=== PATIENT | female | born 1985 | race Caucasian/White ===

== ENCOUNTER 2017-03-04 15:14 | Emergency (ER) | payer BC, MEDICAID ==
[2017-03-04 16:22] VITALS: BP 106/63
--- NOTE | 2017-03-04 16:52 | UC ---
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 Hx Last Menstrual Period: iud does not get menses Onset/Duration: Gradual Onset, Lasting Days, Still Present Severity: Mild Cough: None Associated Signs & Symptoms: Positive: Hoarseness, Fever - Epiglottits Risk Factors Epiglottis Risk Factors: Negative - Allergies/Home Medications Allergies/Adverse Reactions: Allergies Allergy/AdvReac Type Severity Reaction Status Date / Time Doxycycline Allergy GI Upset Verified 03/04/17 16:22 Penicillins AdvReac Mild Vomiting Verified 03/04/17 16:22 Home Medications: Home Medications Ibuprofen TAB* [Motrin TAB* 600 MG] 600 mg PO Q8H PRN 03/04/17 [History Confirmed 03/04/17] PMH/Surg Hx/FS Hx/Imm Hx Previously Healthy: Yes Respiratory History Of: Reports: Asthma - Surgical History Surgical History: None - Family History Known Family History: Positive: Respiratory Disease - asthma, COPD Family History: cardiac disease, breast cancer - Social History Occupation: Employed Full-time Alcohol Use: Occasionally Substance Use Type: None Smoking Status (MU): Former Smoker Type: Cigarettes Amount Used/How Often: 1 - 1 1/2 PPD Length of Time of Smoking/Using Tobacco: 10 Years Have You Smoked in the Last Year: No When Did the Patient Quit Smoking/Using Tobacco: 4 years ago - Immunization History Most Recent Influenza Vaccination: Not the Season Review of Systems Constitutional: Fever, Chills Skin: Negative Eyes: Negative ENT: Sore Throat Respiratory: Negative Cardiovascular: Negative Gastrointestinal: Negative Genitourinary: Negative Motor: Negative Neurovascular: Negative Musculoskeletal: Negative Neurological: Negative Psychological: Negative All Other Systems Reviewed And Are Negative: Yes Physical Exam Triage Information Reviewed: Yes Appearance: No Pain Distress, Well-Nourished, Ill-Appearing Vital Signs: Initial Vital Signs Temp 99.3 F 03/04/17 16:18 Pulse 76 03/04/17 16:18 Resp 16 03/04/17 16:18 BP 106/63 03/04/17 16:18 Pulse Ox 98 03/04/17 16:18 Vital Signs Reviewed: Yes Eye Exam: Normal ENT: Positive: Hearing grossly normal, Pharyngeal erythema, TMs normal, Tonsillar swelling Dental Exam: Normal Neck exam: Normal Neck: Positive: Supple, Nontender, No Lymphadenopathy Respiratory Exam: Normal Respiratory: Positive: Chest non-tender, Lungs clear, Normal breath sounds, No respiratory distress, No accessory muscle use Cardiovascular Exam: Normal Cardiovascular: Positive: RRR, No Murmur, Pulses Normal, Brisk Capillary Refill Abdominal Exam: Normal Musculoskeletal Exam: Normal Musculoskeletal: Positive: Strength Intact, ROM Intact Neurological Exam: Normal Psychological Exam: Normal Psychological: Positive: Normal Response To Family Skin Exam: Normal Throat Pain/Nasal Course/Dx - Differential Dx/Diagnosis Differential Diagnosis/HQI/PQRI: Pharyngitis, Sinusitis, Tonsillitis, URI Provider Diagnoses: TONSILLITIS Discharge - Discharge Plan Condition: Stable Disposition: HOME Patient Education Materials: Tonsillitis (ED), Viral Syndrome (ED) Referrals: Danielle Barba MD [Primary Care Provider] -
== END 2017-03-04 17:02 | disposition home or self-care (01) ==
LOC: UCCORT 15:14
DX: J03.90 Acute tonsillitis, unspecified (principal); J45.909 Unspecified asthma, uncomplicated; Z88.1 Allergy status to other antibiotic agents; Z88.0 Allergy status to penicillin; Z87.891 Personal history of nicotine dependence
CPT/HCPCS: 87651; 99211; G0463

== ENCOUNTER 2017-07-21 17:53 | Emergency (ER) | payer BC ==
[2017-07-21 18:51] VITALS: BP 125/70
--- NOTE | 2017-07-21 20:11 | UC ---
Throat Pain/Nasal Jac HPI - HPI Summary HPI Summary: Pt presents complaining of 5 days preogressive ear pain R>L and feeling swollen under her neck. Pt reports tactile fevers and chills. No sob, cp. No abd pain. No nauease, vomiting Pt reports sinus congestion, PND. No sore throat. Pt states previously had a h/o salivary duct infection and is concerned this is the same but doesn't recall ear pain with previous. sx improve with Motrin, none today + sick contact pt's medications reviewed this visit - History of Current Complaint Chief Complaint: UCRespiratory Stated Complaint: SORE THROAT Time Seen by Provider: 07/21/17 20:10 Hx Obtained From: Patient Hx Last Menstrual Period: unknown, IUD ?: No Onset/Duration: Gradual Onset Pain Intensity: 6 Associated Signs & Symptoms: Positive: Fever - tactile, Other - ear R>L - Allergies/Home Medications Allergies/Adverse Reactions: Allergies Allergy/AdvReac Type Severity Reaction Status Date / Time Doxycycline Allergy GI Upset Verified 07/21/17 18:51 Penicillins AdvReac Mild Vomiting Verified 07/21/17 18:51 PMH/Surg Hx/FS Hx/Imm Hx Previously Healthy: Yes - Surgical History Surgical History: None - Family History Known Family History: Positive: Respiratory Disease - asthma, COPD Family History: cardiac disease, breast cancer - Social History Occupation: Employed Full-time Lives: With Family Alcohol Use: Occasionally Substance Use Type: None Smoking Status (MU): Former Smoker Type: Cigarettes Amount Used/How Often: 1 - 1 1/2 PPD Length of Time of Smoking/Using Tobacco: 10 Years Have You Smoked in the Last Year: No When Did the Patient Quit Smoking/Using Tobacco: 4 years ago - Immunization History Most Recent Influenza Vaccination: not Review of Systems Constitutional: Fever ENT: Ear Ache, Sinus Congestion Respiratory: Negative Cardiovascular: Negative All Other Systems Reviewed And Are Negative: Yes Physical Exam Triage Information Reviewed: Yes Appearance: Well-Appearing, No Pain Distress, Well-Nourished Vital Signs: Initial Vital Signs Temp 98.6 F 07/21/17 18:47 Pulse 71 07/21/17 18:47 Resp 18 07/21/17 18:47 BP 125/70 07/21/17 18:47 Pulse Ox 100 07/21/17 18:47 Vital Signs Reviewed: Yes Eye Exam: Normal Eyes: Positive: Conjunctiva Clear ENT: Positive: Other: - right TM ++ fluid, erythema, buldgine left TM scant fluid turninates inflammed and boggy no intraoral edema No pain of inflammation sublingual No pain or edema with palpation of miller's duct Dental Exam: Normal Neck: Positive: Supple, Nontender, No Lymphadenopathy - + subman LA R>L Respiratory Exam: Normal Respiratory: Positive: Chest non-tender, Lungs clear Cardiovascular Exam: Normal Cardiovascular: Positive: RRR, No Murmur Abdominal Exam: Normal Musculoskeletal Exam: Normal Neurological Exam: Normal Psychological Exam: Normal Throat Pain/Nasal Course/Dx - Course Assessment/Plan: Pt presets with ear pain, congestion and fullness of neck. On exam pt with right OM and lymphadenopathy. No concern for deep space infection or salivary gland involvement. No difficulty with secretions or intraoral edema. will give rx for abx, flonase. secretion precaution. return prevautions. pt comfortable and in agreement with plan - Differential Dx/Diagnosis Provider Diagnoses: otitis media. lymphadenopathy Discharge - Discharge Plan Condition: Stable Disposition: HOME Prescriptions: Cefdinir [Cefdinir 300 MG CAP] 300 mg PO BID #20 cap Fluticasone NASAL * [Flonase *] 2 spray BOTH NARES DAILY #1 spray Patient Education Materials: Lymphadenopathy (ED), Otitis Media (ED) Referrals: Danielle aBrba MD [Primary Care Provider] - Additional Instructions: - Okay to alternate ibuprofen (advil, motrin) and tylenol every 3hours for pain or fever. Take with food - Take antibiotics as prescribed until gone - Stay well hydrated. Drink plenty of non-alcoholic, non-caffinated beverages - - These infections are spread by oral secretions - do not share eating or drinking utensils until you symptoms are resolved. Clean items that may get your secretions such as cell phones, ipads, computer mouse, television remote. Once you have been on antbiotics for 2 days, change your pillowcase and your toothbrush - Contact your doctor or return with questions or concerns
== END 2017-07-21 20:28 | disposition home or self-care (01) ==
LOC: UCCORT 17:53
DX: H66.91 Otitis media, unspecified, right ear (principal); R59.1 Generalized enlarged lymph nodes; R50.9 Fever, unspecified; Z88.1 Allergy status to other antibiotic agents; Z88.0 Allergy status to penicillin; Z87.891 Personal history of nicotine dependence
CPT/HCPCS: 99212; G0463

== ENCOUNTER 2017-09-13 19:14 | Emergency (ER) | payer BC ==
[2017-09-13 19:39] VITALS: BP 119/68
--- NOTE | 2017-09-13 19:52 | UC ---
Throat Pain/Nasal Jac HPI - HPI Summary HPI Summary: sore throat, PND, ear pain for 3 days - History of Current Complaint Chief Complaint: UCGeneralIllness Stated Complaint: SORE THROAT, RIGHT EAR PAIN Time Seen by Provider: 09/13/17 19:43 Hx Obtained From: Patient Hx Last Menstrual Period: has mirena ?: No Onset/Duration: Sudden Onset, Lasting Days Severity: Moderate Associated Signs & Symptoms: Positive: Dysphagia, Sinus Discomfort, Nasal Discharge - Allergies/Home Medications Allergies/Adverse Reactions: Allergies Allergy/AdvReac Type Severity Reaction Status Date / Time Doxycycline Allergy GI Upset Verified 09/13/17 19:39 Penicillins AdvReac Mild Vomiting Verified 09/13/17 19:39 Home Medications: Home Medications Albuterol HFA INHALER* [Ventolin HFA Inhaler*] 2 puff INH Q4H PRN 09/13/17 [ History Confirmed 09/13/17] PMH/Surg Hx/FS Hx/Imm Hx Previously Healthy: Yes - Surgical History Surgical History: None - Family History Known Family History: Positive: Respiratory Disease - asthma, COPD Family History: cardiac disease, breast cancer - Social History Alcohol Use: Occasionally Substance Use Type: None Smoking Status (MU): Former Smoker Type: Cigarettes Amount Used/How Often: 1 - 1 1/2 PPD Length of Time of Smoking/Using Tobacco: 10 Years Have You Smoked in the Last Year: No When Did the Patient Quit Smoking/Using Tobacco: 4 years ago - Immunization History Most Recent Influenza Vaccination: none Review of Systems Constitutional: Negative Skin: Negative Eyes: Negative ENT: Sore Throat, Ear Ache, Nasal Discharge Respiratory: Cough Cardiovascular: Negative Gastrointestinal: Negative Genitourinary: Negative Motor: Negative Neurovascular: Negative Musculoskeletal: Negative Neurological: Negative Psychological: Negative Is Patient Immunocompromised?: No All Other Systems Reviewed And Are Negative: Yes Physical Exam Triage Information Reviewed: Yes Appearance: Well-Appearing, Well-Nourished, Pain Distress Vital Signs: Initial Vital Signs Temp 97.6 F 09/13/17 19:35 Pulse 86 09/13/17 19:35 Resp 17 09/13/17 19:35 BP 119/68 09/13/17 19:35 Pulse Ox 99 09/13/17 19:35 Vital Signs Reviewed: Yes Eye Exam: Normal ENT Exam: Normal ENT: Positive: Pharyngeal erythema, Nasal congestion, Nasal drainage, TM red, Tonsillar swelling, Tonsillar exudate Dental Exam: Normal Neck: Positive: Supple, Nontender, Enlarged Nodes @ - bilateral cervical Respiratory Exam: Normal Respiratory: Positive: Chest non-tender, Lungs clear, Normal breath sounds, No respiratory distress Cardiovascular Exam: Normal Cardiovascular: Positive: RRR, No Murmur, Pulses Normal Abdominal Exam: Normal Abdomen Description: Positive: Nontender, No Organomegaly, Soft Bowel Sounds: Positive: Present Musculoskeletal Exam: Normal Musculoskeletal: Positive: Strength Intact, ROM Intact, No Edema Neurological Exam: Normal Neurological: Positive: Alert, Muscle Tone Normal Psychological Exam: Normal Skin Exam: Normal Throat Pain/Nasal Course/Dx - Course Course Of Treatment: hx obtained, exam performed ,meds reviewed, rapid strep obtained and is negative, treateding for tonsillitis - Differential Dx/Diagnosis Differential Diagnosis/HQI/PQRI: Pharyngitis, Sinusitis Provider Diagnoses: tonsillitis Discharge - Discharge Plan Condition: Stable Disposition: HOME Referrals: Danielle Barba MD [Primary Care Provider] - Additional Instructions: 1. take the medication as prescribed. 2. INcrease fluid intake and get plenty of rest. 3. FOllow up as needed.
[2017-09-13] MEDS ORDERED: Cephalexin CAP* 500 MG PO ONE (19:55)
== END 2017-09-13 20:08 | disposition home or self-care (01) ==
LOC: UCCORT 19:14
DX: J03.90 Acute tonsillitis, unspecified (principal); Z88.1 Allergy status to other antibiotic agents; Z88.0 Allergy status to penicillin; Z87.891 Personal history of nicotine dependence
CPT/HCPCS: 87651; 99212; A9270-GY; G0463

== ENCOUNTER 2018-12-17 09:27 | Emergency (ER) | payer BC ==
[2018-12-17 10:09] VITALS: BP 121/79
[2018-12-17 10:27] LABS: Influenza A Molecular NEGATIVE (Negative); Influenza B Molecular NEGATIVE (Negative)
--- NOTE | 2018-12-17 10:35 | UC ---
Respiratory Complaint HPI - HPI Summary HPI Summary: 33 yo female with fever/chills, runny nose/sinus pressure left otalgai and rare cough x 4-5 days no cp or sob - History of Current Complaint Chief Complaint: UCGeneralIllness Stated Complaint: FEVER,EXHAUSTION,DIZZY,COUGH,CRUZ Time Seen by Provider: 12/17/18 10:22 Hx Obtained From: Patient Hx Last Menstrual Period: Mirena IUD Onset/Duration: Gradual Onset, Lasting Days Timing: Constant Severity Initially: Moderate Severity Currently: Moderate Pain Intensity: 6 Pain Scale Used: 0-10 Numeric Character: Cough: Nonproductive - and rare Associated Signs And Symptoms: Positive: Fever, Chills, URI, Nasal Congestion, Sinus Discomfort - Allergies/Home Medications Allergies/Adverse Reactions: Allergies Allergy/AdvReac Type Severity Reaction Status Date / Time doxycycline AdvReac Dizziness, Verified 12/17/18 10:04 Vomiting Penicillins AdvReac Dizziness, Verified 12/17/18 10:04 Vomiting PMH/Surg Hx/FS Hx/Imm Hx Previously Healthy: Yes Respiratory History: Asthma, Bronchitis, Pneumonia - Surgical History Surgical History: Yes Surgery Procedure, Year, and Place: Tonsillectomy, 2018, [facility] - Family History Known Family History: Positive: Hypertension, Respiratory Disease - asthma, COPD Negative: Cardiac Disease, Diabetes Family History: cardiac disease, breast cancer - Social History Alcohol Use: Occasionally Substance Use Type: None Smoking Status (MU): Former Smoker Type: Cigarettes Amount Used/How Often: 1 - 1 1/2 PPD Length of Time of Smoking/Using Tobacco: 1 PPD x 10 Years Have You Smoked in the Last Year: No When Did the Patient Quit Smoking/Using Tobacco: ~2011 - Immunization History Most Recent Influenza Vaccination: none Review of Systems All Other Systems Reviewed And Are Negative: Yes Constitutional: Positive: Fever, Chills, Fatigue Skin: Positive: Negative Eyes: Positive: Negative ENT: Positive: Ear Ache, Nasal Discharge, Sinus Congestion, Sinus Pain/ Tenderness Respiratory: Positive: Cough Cardiovascular: Positive: Negative Gastrointestinal: Positive: Negative Genitourinary: Positive: Negative Motor: Positive: Negative Neurovascular: Positive: Negative, Decreased Sensation Musculoskeletal: Positive: Myalgia Neurological: Positive: Headache Psychological: Positive: Negative Physical Exam Triage Information Reviewed: Yes Appearance: Well-Appearing, No Pain Distress, Well-Nourished Vital Signs: Initial Vital Signs Temp 98.6 F 12/17/18 10:00 Pulse 68 12/17/18 10:00 Resp 20 12/17/18 10:00 BP 121/79 12/17/18 10:00 Pulse Ox 100 12/17/18 10:00 Vital Signs Reviewed: Yes Eyes: Positive: Conjunctiva Clear ENT: Positive: Nasal congestion, Nasal drainage, TM bulging - R, TM dull - R, Uvula midline. Negative: Hearing grossly normal, TMs normal, Tonsillar swelling , Tonsillar exudate, Dental tenderness, Sinus tenderness Neck: Positive: Supple, Nontender, No Lymphadenopathy Respiratory: Positive: Lungs clear, Normal breath sounds, No respiratory distress, No accessory muscle use Cardiovascular: Positive: RRR, No Murmur Musculoskeletal: Positive: ROM Intact, No Edema Neurological: Positive: Alert Psychological Exam: Normal Skin Exam: Normal Respiratory Course/Dx - Course Course Of Treatment: influenza (-) - Differential Dx/Diagnosis Provider Diagnosis: Viral URI with cough, Acute serous otitis media, right ear Discharge - Sign-Out/Discharge Documenting (check all that apply): Patient Departure All imaging exams completed and their final reports reviewed: No Studies - Discharge Plan Condition: Stable Disposition: HOME Prescriptions: Azithromyxin GAIL (NF) [Z-Gail (Zithromax) 250 mg tabs #6] 2 tab PO .TODAY, THEN 1 DAILY #6 tab Fluticasone NASAL SPRAY 50MCG* [Flonase NASAL SPRAY 50MCG*] 2 spray BOTH NARES BID #1 btl Patient Education Materials: Serous Otitis Media (ED), Upper Respiratory Infection (DC) Referrals: Mine Chavez MD [Primary Care Provider] - If Needed - Billing Disposition and Condition Condition: STABLE Disposition: Home
== END 2018-12-17 10:38 | disposition home or self-care (01) ==
LOC: UCCORT 09:27
DX: J06.9 Acute upper respiratory infection, unspecified (principal); R05 Cough; H65.01 Acute serous otitis media, right ear; J45.909 Unspecified asthma, uncomplicated; Z88.1 Allergy status to other antibiotic agents; Z88.0 Allergy status to penicillin; Z87.891 Personal history of nicotine dependence
CPT/HCPCS: 99212; G0463